=== PATIENT | female | born 1940 | race Caucasian/White ===

== ENCOUNTER → 2016-11-26 | Outpatient (CLI) | payer MEDICARE | END | disposition home or self-care (01) | LOC: CFH 09:05 → EDSTATUS 09:30 | PROVIDERS: ATTEND Family Medicine | DX: Z12.31 Encounter for screening mammogram for malignant neoplasm of breast (principal) | CPT/HCPCS: 77063; G0202 ==

== ENCOUNTER → 2017-12-05 | Outpatient (CLI) | payer MEDICARE | END | disposition home or self-care (01) | LOC: CFH 08:42 | PROVIDERS: ATTEND Genetic Counselor, MS | DX: Z12.31 Encounter for screening mammogram for malignant neoplasm of breast (principal); Z80.3 Family history of malignant neoplasm of breast | CPT/HCPCS: 77063; 77067 ==

== ENCOUNTER → 2018-12-07 | Outpatient (CLI) | payer MEDICARE | END | disposition home or self-care (01) | LOC: CFH 07:54 | PROVIDERS: ATTEND Genetic Counselor, MS | DX: Z12.31 Encounter for screening mammogram for malignant neoplasm of breast (principal) | CPT/HCPCS: 77063; 77067 ==

== ENCOUNTER → 2019-06-04 | Outpatient (CLI) | payer MEDICARE | END | disposition home or self-care (01) | LOC: CFH 09:50 | PROVIDERS: ATTEND Genetic Counselor, MS | DX: M85.88 Other specified disorders of bone density and structure, other site (principal); Z78.0 Asymptomatic menopausal state | CPT/HCPCS: 77080 ==

== ENCOUNTER → 2019-12-14 | Outpatient (CLI) | payer MEDICARE | END | disposition home or self-care (01) | LOC: CFH 09:51 | PROVIDERS: ATTEND Genetic Counselor, MS | DX: Z12.31 Encounter for screening mammogram for malignant neoplasm of breast (principal) | CPT/HCPCS: 77063; 77067 ==

== ENCOUNTER → 2020-07-17 | Outpatient (CLI) | payer MEDICARE ==
[~2020-07-17] MED LIST: ALPR0.5T7 PO; CALC600T60 PO; LEVO75TA PO; LISI1TAB39 PO; PANT40TA6 PO; PEDI1TAB25 PO; SIMV40TA20 PO; SPIR50TA4 PO; VIT1TABL32 PO
[2020-07-17 14:02] LABS: BASOPHILS % (AUTO) 1 % (0-1); EOSINOPHILS % (AUTO) 1 % (1-7); LYMPHOCYTES % (AUTO) 28 % (22-44); MD NO; MEAN CORPUSCULAR HEMOGLOBIN 33.2 pg (27.0-34.8); MEAN CORPUSCULAR HGB CONC 33.7 g/dL (32.4-35.8); MEAN PLATELET VOLUME 7.7 fL (7.4-10.4); MONOCYTES % (AUTO) 9 % (2-9); NEUTROPHILS % (AUTO) 61 % (42-75); PLATELET COUNT 315 x10^3/uL (130-400); RED BLOOD COUNT 3.81 x10^6/uL (3.82-5.3); RED CELL DISTRIBUTION WIDTH 12.9 % (9.6-15.2)
[2020-07-17 14:14] LABS: ALBUMIN 4.1 g/dL (3.4-5.0); ANION GAP 5 mmol/L (5-15); CALCIUM 9.4 mg/dL (8.5-10.1); CHLORIDE 106 mmol/L (98-107)
[2020-07-17 14:17] LABS: ALANINE AMINOTRANSFERASE 23 U/L (12-78); ALKALINE PHOSPHATASE 51 U/L (45-117); BILIRUBIN,TOTAL 0.3 mg/dL (0.2-1.0); CREATININE 0.99 mg/dL (0.55-1.02); TOTAL PROTEIN 7.5 g/dL (6.4-8.2)
[2020-07-17 14:30] LABS: MICROSCOPIC AUTO
== END | disposition home or self-care (01) ==
LOC: STAR 12:48
PROVIDERS: ATTEND Obstetrics & Gynecology Gynecology
DX: Z01.818 Encounter for other preprocedural examination (principal); N81.6 Rectocele; N81.10 Cystocele, unspecified; N81.5 Vaginal enterocele; Z20.822 Contact with and (suspected) exposure to COVID-19
CPT/HCPCS: 71046; 80053; 81001; 85025; 87077; 87086; 87635; 93005

== ENCOUNTER 2020-07-21 08:01 | Day surgery (SDC) | payer MEDICARE ==
[~2020-07-21] VITALS: Ht 162.6 cm; Wt 58.9 kg
[~2020-07-21 08:01] MED LIST changes: +EPINEPHRINE 1 MG/ML, 1ML ONE; +FUROSEMIDE 20 MG/2 ML ONE; +INDIGO CARMINE 0.8%, 5ML ONE; +LIDOCAINE/PF 1%, 30ML ONE; +NEOMY/POLYMYXIN B GU IRR. 1 ML ONE
[2020-07-21] MEDS ORDERED: FENTANYL PF 100 MCG/2ML ONE ×4 (08:06→12:01)
[2020-07-21] MEDS ORDERED: LACTATED RINGERS 1,000 ML IV SCH (08:30)
[2020-07-21] MEDS ORDERED: CHLORHEXIDINE 15 ML UDC MM ONE (09:00)
[2020-07-21] MEDS ORDERED: PROPOFOL 10 MG/ML, 20ML ONE (09:54)
[2020-07-21] MEDS ORDERED: ONDANSETRON 2MG/ML, 2ML ONE (09:54)
[2020-07-21] MEDS ORDERED: DEXAMETHASONE 4 MG/ML, 5ML ONE (09:54)
[2020-07-21] MEDS ORDERED: PHENYLEPHRINE 10 MG/ML ONE (09:54)
[2020-07-21] MEDS ORDERED: LIDOCAINE-MPF 2% ,5ML ONE (09:54)
[2020-07-21] MEDS ORDERED: FUROSEMIDE 20 MG/2 ML ONE (09:54)
[2020-07-21] MEDS ORDERED: METOCLOPRAMIDE 5 MG/ML, 2ML IVPush PRN (10:30)
[2020-07-21] MEDS ORDERED: PROMETHAZINE 12.5 MG SUPP PR PRN (10:30)
[2020-07-21] MEDS ORDERED: METOPROLOL 1 MG/ML, 5ML IV PRN (10:30)
[2020-07-21] MEDS ORDERED: HALOPERIDOL 5 MG/ML IV PRN (10:30)
[2020-07-21] MEDS ORDERED: hydrALAzine 20 MG/ML, 1ML IV PRN (10:30)
[2020-07-21] MEDS ORDERED: ACETAMINOPHEN 325 MG TABLET PO PRN (10:30)
[2020-07-21] MEDS ORDERED: EPHEDRINE 50 MG/ML, 1ML IVPush PRN (10:30)
[2020-07-21] MEDS ORDERED: METHOCARBAMOL 1,000 MG in DEXTROSE 5% 100 ML IV PRN (10:30)
[2020-07-21] MEDS ORDERED: LABETALOL 5MG/ML, 20ML IV PRN (10:30)
[2020-07-21] MEDS ORDERED: ONDANSETRON 2MG/ML, 2ML IVPush PRN (10:30)
[2020-07-21] MEDS ORDERED: DIPHENHYDRAMINE 50 MG/ML, 1ML IVPush PRN (10:30)
[2020-07-21] MEDS ORDERED: OXYcodone 5 MG/5 ML ORAL.SOL UDC ONE (11:19)
[2020-07-21] MEDS: FENTANYL PF 100 MCG/2ML IV PRN ×4 (11:25→12:08)
[2020-07-21] MEDS ORDERED: HYDROmorphone 1 MG/ML, 1ML INJ ONE (11:26)
[2020-07-21] MEDS: HYDROmorphone 1 MG/ML, 1ML INJ IVPush PRN ×3 (11:36→12:00)
[2020-07-21] MEDS: OXYcodone 5 MG/5 ML ORAL.SOL UDC PO PRN ×3 (11:44→12:39)
== END 2020-07-21 15:40 | disposition home or self-care (01) ==
LOC: OUT 08:01
PROVIDERS: ATTEND Obstetrics & Gynecology Gynecology
DX: N99.3 Prolapse of vaginal vault after hysterectomy (principal); I10 Essential (primary) hypertension; E03.9 Hypothyroidism, unspecified; E78.5 Hyperlipidemia, unspecified; Z79.890 Hormone replacement therapy; Z79.899 Other long term (current) drug therapy; Z88.5 Allergy status to narcotic agent
CPT/HCPCS: 57260; 57282; J0171; J1100; J1170; J1940; J2370; J2405; J2704; J3010; J7120

== ENCOUNTER → 2020-12-27 | Outpatient (CLI) | payer MEDICARE ==
[~2020-12-27] MED LIST changes: -EPINEPHRINE 1 MG/ML, 1ML ONE; -FUROSEMIDE 20 MG/2 ML ONE; -INDIGO CARMINE 0.8%, 5ML ONE; -LIDOCAINE/PF 1%, 30ML ONE; -NEOMY/POLYMYXIN B GU IRR. 1 ML ONE
== END | disposition home or self-care (01) ==
LOC: CFH 12:59
PROVIDERS: ATTEND Genetic Counselor, MS
DX: Z12.31 Encounter for screening mammogram for malignant neoplasm of breast (principal)
CPT/HCPCS: 77063; 77067